=== PATIENT | female | born 1940 | race Caucasian/White ===

== ENCOUNTER 2018-02-10 11:05 | Emergency (ER) | payer OTHER ==
[2018-02-10] MEDS: BELLADONNA/PHENOBARBITAL TAB PO (13:00)
[2018-02-10] MEDS: LIDOCAINE/MYLANTA 40 ML BTL PO (13:00)
== END 2018-02-10 14:10 | disposition home or self-care (01) ==
LOC: FTE 11:05
DX: J02.9 Acute pharyngitis, unspecified (principal); I10 Essential (primary) hypertension
CPT/HCPCS: 99282; Z7610